=== PATIENT | female | born 1955 | race African-American/Black ===

== ENCOUNTER 2021-02-04 18:25 | Inpatient (IN) | payer MEDICARE, OTHER ==
[2021-02-04] MEDS ORDERED: oxyCODONE 5 MG Tab PO PRN (18:57)
[2021-02-04] MEDS ORDERED: Ondansetron 4 MG/2 ML SDV IV PRN (18:57)
[2021-02-04] MEDS ORDERED: Ondansetron 4 MG Tab.DIS PO PRN (18:57)
[2021-02-04] MEDS ORDERED: Sodium Chloride 0.9% 10 ML Syringe FLUSH PRN (18:57)
[2021-02-04] MEDS ORDERED: Albuterol/Ipratropium 3.0-0.5 MG/3 ML Neb Soln NEB PRN (18:57)
[2021-02-04] MEDS ORDERED: Acetaminophen 325 MG Tab PO PRN (18:57)
[2021-02-04] MEDS ORDERED: HYDROmorphone 0.5 MG/0.5 ML Syringe IVPUSH PRN (18:57)
[2021-02-04] MEDS ORDERED: Cyclobenzaprine 10 MG Tab PO PRN (19:26)
--- NOTE | 2021-02-04 20:02 | PN ---
Progress Note for HIWOT SOLANO Date: 02/04/2021 Room #: VM.214 CHIEF COMPLAINT: Not feeling well for the last 6 days. HISTORY OF PRESENT ILLNESS: Last , the patient just felt ill with a skin sort of sensitivity, some cough. No fever or chills. Not really short of breath, but it hurt to breathe, and just was having a bad back spasm. She did get Toradol when she came into the clinic and then she was evaluated with a chest x- ray which showed her to have a right lower lobe infiltrate. She has no history of pneumonia, but she did smoke, but quit like in 2002. She also had a very sore throat. She was also tested for COVID and negative at the clinic. The patient has no history of chronic heart or lung disease. She has not been doctoring. The patient slept in the chair last night due to pain. She did get her COVID vaccine earlier this year. She was actually going to be treated as an outpatient, but then her lab work returned to white count 27,000 and her creatinine 2.3 with no previous for comparison. The patient has no recorded allergies. She takes no regular medications, but due to being ill and having this pain on her right-sided ribs, she was taking ibuprofen like 400 twice daily and Tylenol at least to daily. PAST MEDICAL HISTORY: She quit smoking again in 2002. She had both hips replaced for arthritis. Otherwise, no other chronic medical problems. Negative for cancer, heart disease, or lung disease. PAST SURGICAL HISTORY: She has had the bilateral hip replacements. FAMILY HISTORY: Her father was a pharmacist here. He is . SOCIAL HISTORY: The patient is . is at home. He goes to the [place] Daughters in the room with her during my exam. Again, she quit smoking in 2002. No drinking. REVIEW OF SYSTEMS: General: She has lost some weight, just a few pounds in the last few days. Otherwise had not had any weight loss. She has not felt overly feverish or chilled. HEENT: She has had a sore throat. Some difficulty swallowing with phlegm, but this just came on with this infection. Cardiac: No chest pain. No palpitations. Respiratory: She has had some cough and phlegm. She has had some shortness of breath. However, she was not hypoxic in the clinic. Abdomen: She has had no nausea or vomiting. Musculoskeletal: She has had the back pain. She did get some Toradol in the clinic, it helped a lot. Mental Status and Psychiatry: She has not had any confusion. All systems reviewed and found to be negative unless otherwise stated. PHYSICAL EXAMINATION: Vital Signs: In the clinic, the patient had a temperature of a 100.4, but her O2 is 96% on room air, blood pressure 116/62, and pulse 97, and respiratory rate is 18. General: The patient is in no acute distress. She is resting comfortably in bed. Heart: Regular rate and rhythm. S1 and S2 without murmur. Lungs: Sounds are decreased with crackles in that right base. Left lung is clear. No wheezing. Abdomen: Nondistended and nontender. Extremities: Warm and dry. No edema. Mental Status: Alert and orientated x3. LABORATORY DATA: Lab work again reviewed from the clinic does show white count 27,000 with differential of 2.2 bands and 21.6 segments, both high; hemoglobin is 12.7; and platelets 328. Glucose 97, BUN 44, creatinine 2.36, sodium 135, potassium 3.9, chloride 100, bicarb 18, calcium 9.7, and GFR 21. Thyroid pending. Chest x-ray does show that right lower lobe infiltrate. ASSESSMENT: 1. Sepsis due to leukocytosis, fever, and tachycardia, criteria due to right lower lobe pneumonia. 2. Right lower lobe pneumonia, community acquired. COVID testing already negative, but due to the symptoms of sore throat and muscle aches, we will do influenza testing. 3. Acute renal failure, unknown what her previous renal function is. The patient will get a UA. She will have repeat lab work tomorrow. We will give her IV fluids. We will monitor in's and out's. We will hold further NSAIDs, give her IV Dilaudid if needed for pain, or oral oxycodone for DVT prophylaxis. She will be on heparin renal dosing 5000 q.12. 4. Obesity. 5. Painful back spasms. She will have Flexeril p.r.n and narcotic pain meds are available PLAN: The patient is admitted for acute cares with IV antibiotics of Zosyn and Zithromax. We will get blood and sputum cultures. We will get a lactate and procalcitonin and CRP. She is not requiring any oxygen. Did discuss with her if her condition would worsen, she would want CPR and transfer down to [place]. She is a code level 1. MKA: 02/04/2021 19:29:49 MODL: 02/04/2021 19:51:47 /[id number] MTDD
[2021-02-04] MEDS ORDERED: Piperacillin/Tazobactam 2.25 GM in Sodium Chloride 0.9% 100 ML IV SCH (20:30)
[2021-02-04] MEDS ORDERED: Azithromycin 250 MG Tab PO SCH (21:00)
[2021-02-04 21:11] LABS: CORONAVIRUS COVID-19 NAA NEGATIVE (NEGATIVE)
[2021-02-04] MEDS: Heparin Sodium 5,000 Units/ML Vial SUBCUT SCH (21:18)
[2021-02-04] MEDS: Sodium Chloride 0.9% 1,000 ML IV SCH (23:20)
[2021-02-05] MEDS: Heparin Sodium 5,000 Units/ML Vial SUBCUT SCH ×2 (05:40→13:05)
[2021-02-05 07:45] LABS: ANION GAP 16.4 mmol/L (5-15)
[2021-02-05] MEDS ORDERED: Piperacillin/Tazobactam 2.25 GM in Sodium Chloride 0.9% 100 ML IV SCH (08:00)
[2021-02-05] MEDS ORDERED: Piperacillin/Tazobactam 3.375 GM in Sodium Chloride 0.9% 100 ML IV SCH (08:00)
[2021-02-05] MEDS: Sodium Chloride 0.9% 1,000 ML IV SCH (08:58)
[2021-02-05 09:29] LABS: BASE EXCESS ARTERIAL -5 mmol/L ((-2)-(+3)); BICARBONATE,ARTERIAL 19 mmol/L (21-28); PCO2 ARTERIAL 26 mmHG (35-48); PO2 ARTERIAL 45 mmHG (83-108)
[2021-02-05] MEDS: Albuterol/Ipratropium 3.0-0.5 MG/3 ML Neb Soln NEB SCH ×3 (10:29→16:20)
--- NOTE | 2021-02-05 11:19 | PN ---
Progress Note for HIWOT SOLANO Date: 02/05/2021 Room #: VM.214 SUBJECTIVE: The patient has still been feeling fairly sore, coughing, not much energy. Has rested fairly well last evening and no other acute concerns. OBJECTIVE: Vital Signs: Her weight has not been done today, we will follow daily weights. Her temperature max was 37.5, now is 36.8. Her blood pressure is 139/56, pulse 95, saturations are 90% on room air, respiratory rate 16. General: The patient is appearing flushed. She is fairly weak with moving around. She does have some fluid retention noted. Heart: Regular rate and rhythm. Lungs: Have very diminished breath sounds on bases. Abdomen: Soft, nontender. LABORATORY DATA: Her white blood cell count is 22.8, which is improved from 27 from the clinic yesterday. Hemoglobin has dropped to 10.8 with platelets 405. 69 neutrophils, 12 bands, 14 lymphocytes. Sodium is 135, potassium 3.4, creatinine is stable at 2.5. GFR is 23. Lactic acid on admit was 0.8. LFTs are normal other than alk phos was elevated at 165 with 116 being normal. Her procalcitonin yesterday had been elevated at 4.99. Her urine test showed dark urine, 100 mg/dL of protein, 5 to 10 white blood cells, 5 to 10 red blood cells. Tests for influenza A and B were negative. SARS was negative as well. IMPRESSION: 1. Sepsis. 2. Right lower lobe pneumonia. 3. Acute renal failure, unclear if there may be underlying chronic kidney disease present. 4. Borderline hypoxemia. 5. Weakness. 6. Obesity. 7. Back spasms. PLAN: We will place the patient on scheduled DuoNeb, so we will check ABGs on her. We will repeat chest x-ray today. We will continue her same antibiotics of Zithromax as well as Zosyn, and we will keep monitoring renal function. The patient will be repeated on blood work. If she worsens, she may need to be transferred to [place]. GM02/05/2021 08:38:56 MODL: 02/05/2021 09:12:51 /[id number]
--- NOTE | 2021-02-05 11:32 | CR ---
[id number] RAD/RAD Chest PA And Lateral EXAM: RAD Chest PA And Lateral INDICATION: PNEUMONIA FOLLOW UP COMPARISON: None. DISCUSSION/IMPRESSION: No prior imaging for comparison as indication described "pneumonia follow up." Bilateral pleural effusions right greater than left. Small amount of fluid extends into the minor fissure on the right. Subtle central opacification projects over the right midlung. This could represent pneumonia, however finding is nonspecific. Curtis Larsen MD 02/05/21 1131 Thank you for allowing us to participate in the care of your patient.
--- NOTE | 2021-02-05 12:03 | PCM.SN.2 ---
- Free Text/Narrative Note: pos D dimer with pO2 at 45. Spoke with [facility] about transfer and they have no beds yet. Recommend 1 dose of vancomycin. get nasal MRSA screen, do noncontrast CT chest. Dr Diallo talked to at 11:50 am. They will call back when bed available.
[2021-02-05] MEDS ORDERED: VANCOmycin 1.25 GM/250 ML 1.25 GM in Premix Bag 1 BAG IV ONE (12:30)
--- NOTE | 2021-02-05 15:04 | CT ---
[id number] CT/CT Chest WO IV Exam: CT Chest WO IV Clinical Data: SHORTNESS OF BREATH POSITIVE D-DIMER COMPARISON: CORRELATION IS MADE WITH THE CURRENT CHEST RADIOGRAPH FINDINGS: IV contrast was not used There is a moderate right-sided effusion There is an extensive infiltrate at the right lung base There is partial eventration of the left hemidiaphragm There is no adrenal mass. There are subcentimeter mediastinal lymph nodes IMPRESSION: PNEUMONIA AND EFFUSION ON RIGHT IV CONTRAST WAS NOT USED INDETERMINATE STUDY FOR PULMONARY EMBOLUS Rui Palma MD 02/05/21 8114 Thank you for allowing us to participate in the care of your patient.
--- NOTE | 2021-02-05 16:53 | DISCH ---
The patient was transferred to [place] on 02/05/2021. PRIMARY DIAGNOSES: 1. Acute right pneumonitis. 2. Hypoxemia. 3. Sepsis. 4. Acute renal failure. 5. Unknown if underlying chronic kidney disease. 6.. Dehydration. 7. Chronic osteoarthritis. 8. Positive D-dimer. 9..Right pleural effusions. 10. Infrequent medical care. 11. Hematuria. SUMMARY OF ADMIT HISTORY AND PHYSICAL: The patient is a 65-year-old female, who presented to the clinic feeling ill after having a cough and fever that had been going on for a few days. She had to sleep lying in a chair because it was so sore for her to move around. Her lab work in the clinic had shown her to have an elevated white blood cell count to 27,000 with left shift. She had a creatinine level of 2.36. The patient had a negative COVID test. GFR was noted to be 21. TSH was slightly elevated at 5.03. Hemoglobin was 12.7. Chest x-ray done at the clinic had shown dense consolidation within the right middle lobe concerning for pneumonia. Her vital signs at that time had shown her temperature to be 100.4, blood pressure 116/62, pulse 97, sats were 96%. She was seen by Mira COLEMAN and then admitted by Magaly Santo DO. She has not been in to the clinic for medical in several years. SUMMARY OF HOSPITAL COURSE: She was admitted by Dr. Magaly Santo. She had blood cultures drawn. She was checked for influenza, which was negative. She had lactic acid done that was 0.8, which is normal. CRP was elevated at 47.4, procalcitonin elevated at 4.99. COVID test was repeated as well, which was negative. The patient was placed on Zithromax 500 mg daily as well as Zosyn 3.375 g q.8 hours. She was given IV hydration, given some Zofran for nausea, hydromorphone for pain control. She was placed on heparin 5000 units subcu q.8 hours due to reduced renal function and she had p.r.n. albuterol nebs. It was noted by morning the patient's sats were starting to drop down to 90%, so she had oxygen started. She had blood gases that were done on room air that showed pH 7.46, PCO2 of 26, PO2 of 45, bicarb 19, FiO2 on room air. Her white blood cell count had improved to 22.8; hemoglobin had dropped to 10.8, felt to be dilutional; platelet count was 405 with 69 segs, 12 bands, 11 lymphocytes. Sodium was 135, potassium 3.4. Creatinine had slightly worsened to 2.5 with GFR 23. LFTs were normal except for alkaline phosphatase at 165 and albumin was low at 1.8. Urinalysis showed specific gravity 1.020 with 5 to 10 red blood cells, 5 to 10 white blood cells, few epithelial cells. Chest x-ray was repeated, which did show increasing right pleural effusion. D-dimer test was done, which was positive at 3.09, normal being 0.58 or less. Because of the patient's reduced renal function, she could not have dye for CT scan of her chest, but a CT scan was done without dye, which came back showing moderate size right pleural effusion and extensive infiltrate at the right lung base, partial eventration of the left hemidiaphragm, no adrenal masses, there are subcentimeter mediastinal lymph nodes noted. Because of concern with the patient's worsening condition, I did contact Dr. He at 11:45 to initiate transfer via [facility]. They did not have any beds available until 14:30. The patient did have a MRSA nasal screen done, but results are not back yet at the time of this discharge. The patient will go by ambulance because of need for oxygen as well as IV fluids and IV medications.. The patient is code level 1 status. Her and daughter were present in the room when talking about transfer as well as a close family friend. GM02/05/2021 15:23:11 MODL: 02/05/2021 16:48:38 /[id number] Over 30 min time spent on discharging patient and making arrangements for [place]. YANDEL
== END 2021-02-05 15:40 | disposition short-term general hospital (02) | DRG 871 ==
LOC: VM.MS 18:25
PROVIDERS: ADMIT Internal Medicine; ATTEND Internal Medicine
DX: A41.9 Sepsis, unspecified organism (principal); J18.9 Pneumonia, unspecified organism; N17.9 Acute kidney failure, unspecified; J90 Pleural effusion, not elsewhere classified; E86.0 Dehydration; R09.02 Hypoxemia; R31.9 Hematuria, unspecified; M19.90 Unspecified osteoarthritis, unspecified site; Z20.822 Contact with and (suspected) exposure to COVID-19; R53.1 Weakness; R25.2 Cramp and spasm; E66.9 Obesity, unspecified; Z68.30 Body mass index [BMI] 30.0-30.9, adult
CPT/HCPCS: 0240U; 36415; 36600; 71046; 71250; 71260; 80053; 81001; 82803; 83605; 84145; 85025; 85379; 86140; 87040; 94640; A9270-GY; J1644; J2543; J3370; J7030; J7620-GY